=== PATIENT | male | born 1950 | race African-American/Black ===

== ENCOUNTER → 2021-07-30 | Outpatient (CLI) | payer MEDICARE ==
[2021-07-30 14:52] LABS: ALT 85 U/L (10-49); AST 57 U/L (14-35); Albumin 4.4 g/dL (3.8-4.9); Albumin/Globulin Ratio 1.62 (1.60-3.17); Alkaline Phosphatase 79 U/L (41-126); Amylase 86 U/L (23-121); Bilirubin, Conjugated <0.20 mg/dL (0.20-0.40); Globulin 2.7 g/dL (1.6-3.3); Total Protein 7.1 g/dL (6.2-8.2)
== END | disposition home or self-care (01) ==
LOC: LABWHC1 11:03
PROVIDERS: ATTEND Internal Medicine
DX: E11.9 Type 2 diabetes mellitus without complications (principal); R10.9 Unspecified abdominal pain; R94.5 Abnormal results of liver function studies
CPT/HCPCS: 36415; 80076; 82150; 83036

== ENCOUNTER → 2022-02-20 | Outpatient (CLI) | payer MEDICARE ==
--- NOTE | 2022-02-20 14:25 | US ---
EXAMINATION TYPE: US carotid duplex BILAT DATE OF EXAM: 02/20/2022 COMPARISON: NONE CLINICAL HISTORY: H53.2 BLURRED VISION. EXAM MEASUREMENTS: RIGHT: Peak Systolic Velocity (PSV) cm/sec ----- Right CCA: 113.7 ----- Right ICA: 155.6 ----- Right ECA: 80.2 ICA/CCA ratio: 1.4 RIGHT: End Diastole cm/sec ----- Right CCA: 23.8 ----- Right ICA: 28.2 ----- Right ECA: 11.4 LEFT: Peak Systolic Velocity (PSV) cm/sec ----- Left CCA: 99.2 ----- Left ICA: 74.8 ----- Left ECA: 86.2 ICA/CCA ratio: 0.8 LEFT: End Diastole cm/sec ----- Left CCA: 25.5 ----- Left ICA: 31.8 ----- Left ECA: 15.4 VERTEBRALS (direction of flow): Right Vertebral: Antegrade Left Vertebral: Antegrade Rhythm: Normal Difficult and limited bilateral ICA images due to patient's thick neck and deep vessels No significant stenosis IMPRESSION: No evidence for hemodynamically significant stenosis. Criteria for Assigning % of Stenosis / Diameter reduction (Estimation based on the indirect measurements of the internal carotid artery velocities (ICA PSV). 1. Normal (no stenosis)=ICA PSV < 125 cm/s: ratio < 2.0: ICA EDV<40 cm/s. 2. Less than 50% stenosis=ICA PSV < 125 cm/s: ratio < 2.0: ICA EDV<40 cm/s. 3. 50 to 69% stenosis=ICA PSV of 125 to 230 cm/s: ration 2.0 ? 4.0: ICA EDV 40-100 cm/s. 4. Greater than 70% stenosis to near occlusion= ICA PSV > 230 cm/s: ratio > 4.0: ICA EDV > 100 cm/s. 5. Near occlusion= ICA PSV velocities may be low or undetectable: variable ratio and ICA EDV. 6. Total occlusion=unable to detect flow.
== END | disposition home or self-care (01) ==
LOC: RADUSWWP 13:27
PROVIDERS: ATTEND Internal Medicine
DX: H53.2 Diplopia (principal)
CPT/HCPCS: 93880

== ENCOUNTER → 2024-01-29 | Outpatient (CLI) | payer MEDICARE ==
--- NOTE | 2024-01-29 16:13 | US ---
EXAMINATION TYPE: US carotid duplex BILAT DATE OF EXAM: 01/29/2024 COMPARISON: NONE CLINICAL INDICATION: Male, 73 years old with history of R09.89 OTH SYMPTOMS AND SIGNS INVOLVING THE C IRC A; No HTN. Patient states doctor heard something on the left CCA. TECHNIQUE: Carotid duplex ultrasound examination. Indirect Doppler criteria was utilized. FINDINGS: EXAM MEASUREMENTS: RIGHT: Peak Systolic Velocity (PSV) cm/sec ----- Right CCA: 96.1 ----- Right ICA: 107.0 ----- Right ECA: 103.0 ICA/CCA ratio: 1.1 RIGHT: End Diastole cm/sec ----- Right CCA: 22.1 ----- Right ICA: 11.0 ----- Right ECA: 8.5 LEFT: Peak Systolic Velocity (PSV) cm/sec ----- Left CCA: 90.8 ----- Left ICA: 86.3 ----- Left ECA: 70.2 ICA/CCA ratio: 1.0 LEFT: End Diastole cm/sec ----- Left CCA: 22.0 ----- Left ICA: 22.1 ----- Left ECA: 11.5 VERTEBRALS (direction of flow): Right Vertebral: Antegrade Left Vertebral: Antegrade Rhythm: Normal PHARMACY PICKING TECH NOTES: Mild intimal thickening is present. Bilateral wall thickening. No elevated veloci ties. No significant stenosis. IMPRESSION: Atheromatous plaque without significant flow limiting stenosis based on velocities. Criteria for Assigning % of Stenosis / Diameter reduction (Estimation based on the indirect measurements of the internal carotid artery velocities (ICA PSV). 1. Normal (no stenosis)=ICA PSV < 125 cm/s: ratio < 2.0: ICA EDV<40 cm/s. 2. Less than 50% stenosis=ICA PSV < 125 cm/s: ratio < 2.0: ICA EDV<40 cm/s. 3. 50 to 69% stenosis=ICA PSV of 125 to 230 cm/s: ration 2.0 ? 4.0: ICA EDV 40-100 cm/s. 4. Greater than 70% stenosis to near occlusion= ICA PSV > 230 cm/s: ratio > 4.0: ICA EDV > 100 cm/s. 5. Near occlusion= ICA PSV velocities may be low or undetectable: variable ratio and ICA EDV. 6. Total occlusion=unable to detect flow.
== END | disposition home or self-care (01) ==
LOC: RADUSWWP 14:17
PROVIDERS: ATTEND Family Medicine
DX: I70.90 Unspecified atherosclerosis (principal); R09.89 Other specified symptoms and signs involving the circulatory and respiratory systems
CPT/HCPCS: 93880

== ENCOUNTER → 2024-02-26 | Outpatient (CLI) | payer MEDICARE ==
[2024-02-26 17:11] LABS: African American GFR (CKD) >90 (>60 ml/min/1.73 sqM); Blood Urea Nitrogen 15 mg/dL (9-20); Non-African American GFR(CKD) 81 (>60 ml/min/1.73 sqM)
--- NOTE | 2024-02-26 18:28 | CT ---
EXAMINATION TYPE: CT abdomen pelvis wo/w con CT DLP: 2943.0 mGycm, Automated exposure control for dose reduction was used. DATE OF EXAM: 02/26/2024 6:02 PM COMPARISON: None. CLINICAL INDICATION:Male, 73 years old with history of R10.31 RIGHT LOWER QUADRANT PAIN; RLQ pain TECHNIQUE: Axial CT of the abdomen and pelvis. Sagittal and coronal reformats were created on a [employer] workstation. Contrast used:100ml mL of Isovue 300 with IV Contrast, (none if empty) Oral contrast used: with Oral Contrast (none if empty) FINDINGS: LOWER CHEST: Mild subsegmental atelectasis in the lung bases. Normal size heart without pericardial e ffusion. ABDOMEN LIVER: Mildly enlarged with the right lobe measuring 18 cm. Diffusely hypoattenuating parenchyma sugg esting mild to moderate steatosis. There are a couple of small hypodensities in the right lobe, at le ast one in the left lobe, which are too small to characterize but do not seem extremely well-defined or fill-in on delayed imaging. These are nonspecific. GALLBLADDER AND BILE DUCTS: Unremarkable gallbladder. No biliary ductal dilatation. PANCREAS: Unremarkable. SPLEEN: Unremarkable. ADRENAL GLANDS: Mildly thickened, may be seen with hyperplasia.. KIDNEYS AND URETERS: Kidneys enhance symmetrically. No evidence of hydronephrosis or visible renal ca lculus. The ureters are unremarkable. Small hypodense lesions bilaterally with the appearance of cyst s. PELVIS BLADDER: Mildly urine filled with indentation on its base by a heterogeneously enlarged prostate altagracia uring roughly 6.6 x 5.7 cm. REPRODUCTIVE: As above ABDOMEN & PELVIS STOMACH AND BOWEL: Contrast traverses the stomach and proximal small bowel loops without significant distention seen. Contrast is beginning to reach the right side of the colon. The appendix is normal. Within the low right pelvis, there is a moderate sized inguinal hernia measuring 4.7 cm in size with a neck about 2.1 cm diameter which contains a loop of contrast filled, nondilated small bowel without evidence of obstruction at this time. There may be mild edema of the mesentery. There is a smaller f at-containing left inguinal hernia. Mild to moderate stool throughout the colon without acute abnormality seen. There are several diverti cula mostly in the descending and sigmoid segments without clear evidence of diverticulitis. PERITONEUM/RETROPERITONEUM: No evidence of pneumoperitoneum or free fluid. VASCULATURE: Mild atherosclerotic calcifications are present throughout the abdominal aorta and its b ranches. No evidence of aortic aneurysm. Portal veins are enhancing. Splenic vein and SMV are enhan cing. LYMPH NODES: No enlarged nodes by CT size criteria. SOFT TISSUE/ABDOMINAL WALL: Please see description of inguinal hernias above. Additionally, there is a small fat-containing umbilical region hernia. MUSCULOSKELETAL: No acute osseous abnormalities. Moderate disc degeneration changes are present throu ghout the thoracolumbar spine. Grade 1 degenerative anterolisthesis L4 over L5. IMPRESSION: 1. No evidence of bowel obstruction, free fluid or free air. Normal appendix. 2. Moderate sized right inguinal hernia, containing a loop of contrast-filled, nondistended small cody wel without evidence of obstruction this time. There appears to be mild edema of the mesentery. Corre late clinically for any chance of incarceration or strangulation. 3. Nonspecific hypodense hepatic and renal lesions, however likely cysts and/or hemangiomas in absen ce of a cancer history. If clinically warranted, follow-up MR abdomen may be obtained. 4. Hepatomegaly and hepatic steatosis. 5. Prostatomegaly.
== END | disposition home or self-care (01) ==
LOC: RADCTMAIN 15:33
PROVIDERS: ATTEND Family Medicine
DX: K40.90 Unilateral inguinal hernia, without obstruction or gangrene, not specified as recurrent (principal); K76.0 Fatty (change of) liver, not elsewhere classified; N40.0 Benign prostatic hyperplasia without lower urinary tract symptoms
CPT/HCPCS: 82565; 84520; 74178; 36415; Q9967

== ENCOUNTER → 2024-11-05 | Outpatient (CLI) | payer MEDICARE ==
--- NOTE | 2024-11-05 10:30 | CT ---
EXAMINATION TYPE: CT abdomen pelvis wo con CT DLP: 836 mGycm, Automated exposure control for dose reduction was used. DATE OF EXAM: 11/05/2024 10:15 AM COMPARISON: CT abdomen pelvis 02/26/2024 CLINICAL INDICATION:Male, 74 years old with history of R10.31 RIGHT LOWER QUADRANT PAIN; Right lower quadrant pain TECHNIQUE: Standard CT of the abdomen and pelvis without IV or oral contrast. Lack of IV or oral co ntrast limits evaluation of solid and hollow organ viscera. Coronal and sagittal reformats were perfo rmed. FINDINGS: LOWER CHEST: Unremarkable ABDOMEN LIVER: Couple of subcentimeter hypodense foci within the liver which are too small to characterize bu t likely represent cysts. Additional central right hepatic lobe 1.4 cm cyst. The liver is diffusely h ypoattenuating. GALLBLADDER AND BILE DUCTS: Unremarkable noncontrast appearance. PANCREAS: Unremarkable noncontrast appearance. SPLEEN: Unremarkable noncontrast appearance. ADRENAL GLANDS: Unremarkable noncontrast appearance.. KIDNEYS AND URETERS: No evidence of hydronephrosis or renal calculus. Right renal inferior pole 1.1 c m cyst. Additional subcentimeter cysts within the left kidney. PELVIS BLADDER: Unremarkable REPRODUCTIVE: Prostate is enlarged in size measuring 6.0 cm in transverse dimension. This indents upo n the urinary bladder base. ABDOMEN & PELVIS STOMACH AND BOWEL: Small hiatal hernia, duodenum is unremarkable. The appendix appears unremarkable i n course as superiorly behind the liver. There is fat stranding with fascial thickening and diverticu la involving the descending colon. Additional diverticula involving the sigmoid colon. No pneumatosis . No surrounding organized fluid collection. No evidence of bowel obstruction. PERITONEUM: No evidence of pneumoperitoneum or free fluid. VASCULATURE: No evidence of aortic aneurysm. Few pelvic phleboliths. MUSCULOSKELETAL: No acute osseous abnormalities. Anterior osteophytosis of the lower thoracic spine. Grade 1 anterolisthesis of L4 on L5 without pars defects. LYMPH NODES: No gross evidence for lymphadenopathy. SOFT TISSUE/ABDOMINAL WALL: Postsurgical changes from bilateral inguinal hernia repair with mesh. Pat ulous appearance of the inguinal rings bilaterally. Previously seen umbilical hernia is no longer vis ualized. IMPRESSION: 1. Uncomplicated acute diverticulitis involving the descending colon. 2. Hepatic steatosis. [facility], , 11/05/2024 10:28 AM
[2024-11-05 10:31] LABS: ALT 49 U/L (4-49); AST 39 U/L (17-59); African American GFR (CKD) 66 (>60 ml/min/1.73 sqM); Albumin 4.4 g/dL (3.5-5.0); Albumin/Globulin Ratio 1.4; Alkaline Phosphatase 77 U/L (38-126); Anion Gap 8 mmol/L; Blood Urea Nitrogen 18 mg/dL (9-20); Calcium 9.6 mg/dL (8.4-10.2); Carbon Dioxide 29 mmol/L (22-30); Chloride 100 mmol/L (98-107); Globulin 3.2 g/dL; Glucose 124 mg/dL (74-99); Non-African American GFR(CKD) 57 (>60 ml/min/1.73 sqM); Potassium 4.3 mmol/L (3.5-5.1); Sodium 137 mmol/L (137-145); Total Protein 7.6 g/dL (6.3-8.2)
[2024-11-05 16:15] LABS: Basophils # (A) 0.03 X 10*3/uL (0.00-0.10); Basophils % (A) 0.3 %; Eosinophils # (A) 0.02 X 10*3/uL (0.04-0.35); Eosinophils % (A) 0.2 %; HCT 43.3 % (39.6-50.0); HGB 13.9 g/dL (13.0-17.0); Lymphocytes # (A) 2.16 X 10*3/uL (0.90-5.00); Lymphocytes % (A) 19.8 %; MCH 27.7 pg (27.0-32.0); MCHC 32.1 g/dL (32.0-37.0); MCV 86.3 FL (80.0-97.0); Mean Platelet Volume 11.4 FL (9.5-12.2); Monocytes # (A) 0.89 X 10*3/uL (0.20-1.00); Monocytes % (A) 8.2 %; NRBC Per 100 WBC 0 X 10*3/uL (0.00-0.01); Neutrophils # (A) 7.75 X 10*3/uL (1.80-7.70); Neutrophils % (A) 71.1 %; Platelet Count 206 X 10*3/uL (140-440); RBC 5.02 X 10*6/uL (4.40-5.60); RDW 14.3 % (11.5-14.5); WBC 10.89 X 10*3/uL (4.50-10.00)
== END | disposition home or self-care (01) ==
LOC: RADCTMAIN 09:36
PROVIDERS: ATTEND Family Medicine
DX: K57.32 Diverticulitis of large intestine without perforation or abscess without bleeding (principal); K76.0 Fatty (change of) liver, not elsewhere classified
CPT/HCPCS: 74176; 80053; 84153; 85025